=== PATIENT | male | born 1995 | race Caucasian/White ===

== ENCOUNTER 2019-01-28 10:43 | Emergency (ER) | payer BC, OTHER ==
[2019-01-28] MEDS ORDERED: Sodium Chloride 0.9% 1,000 ML IV ONE (10:56)
--- NOTE | 2019-01-28 11:00 | EDM.PDOC ---
ED HPI GENERAL MEDICAL PROBLEM - General Chief Complaint: Abdominal Pain Stated Complaint: FLU Time Seen by Provider: 01/28/19 10:46 - History of Present Illness INITIAL COMMENTS - FREE TEXT/NARRATIVE: HISTORY AND PHYSICAL: History of present illness: Patient is a 23-year-old male presents with a concern of diarrhea and lower abdominal pain patient has had prior appendectomy he states has been over last 24 hours he denies fever chills denies trauma denies urinary symptoms or other concern Review of systems: As per history of present illness and below otherwise all systems reviewed and negative. Past medical history: As per history of present illness and as reviewed below otherwise noncontributory. Surgical history: As per history of present illness and as reviewed below otherwise noncontributory. Social history: No reported history of drug or alcohol abuse. Family history: As per history of present illness and as reviewed below otherwise noncontributory. Physical exam: HEENT: Atraumatic, normocephalic, pupils reactive, negative for conjunctival pallor or scleral icterus, mucous membranes moist, throat clear, neck supple, nontender, trachea midline. Lungs: Clear to auscultation, breath sounds equal bilaterally, chest nontender. Heart: S1S2, regular, negative for clicks, rubs, or JVD. Abdomen: Soft, nondistended, mild tenderness across lower abdomen no rebound no guarding this is nonlocalized. Negative for masses or hepatosplenomegaly. Negative for costovertebral tenderness. Pelvis: Stable nontender. Genitourinary: Deferred. Rectal: Deferred. Extremities: Atraumatic, negative for cords or calf pain. Neurovascular unremarkable. Neuro: Awake, alert, oriented. Cranial nerves II through XII unremarkable. Cerebellum unremarkable. Motor and sensory unremarkable throughout. Exam nonfocal. Diagnostics: CBC CMP UA lipase stool for C&S O&P C. difficile Therapeutics: Saline Liter bolus Impression: #1 diarrhea #2 abdominal pain Definitive disposition and diagnosis as appropriate pending reevaluation and review of above. Right Lower Abdominal Pain Score (Numeric/FACES): 4 - Related Data Allergies Allergy/AdvReac Type Severity Reaction Status Date / Time No Known Allergies Allergy Verified 01/28/19 10:55 Home Meds: Home Meds ARIPiprazole [Abilify] 5 mg PO DAILY 01/28/19 [History] Escitalopram [Lexapro] 20 mg PO DAILY 01/28/19 [History] ED ROS GENERAL - Review of Systems Review Of Systems: ROS reveals no pertinent complaints other than HPI. ED EXAM, GENERAL - Physical Exam Exam: See Below (See dictation) Course - Vital Signs Last Recorded V/S: Last Vital Signs Temp 36.6 C 01/28/19 10:51 Pulse 80 01/28/19 10:51 Resp 18 01/28/19 10:51 BP 108/78 01/28/19 10:51 Pulse Ox 98 01/28/19 10:51 - Orders/Labs/Meds Orders: Active Orders 24 hr Category Date Time Status CDIFF TOX A+B [OP] Stat Lab 01/28/19 11:30 Received CULTURE STOOL + CAMPY+SHIGATOX [RM] Stat Lab 01/28/19 11:30 Received UA RFX YAJAIRA AND CULT IF INDIC [URIN] Stat Lab 01/28/19 11:06 Received Labs: Laboratory Tests 01/28/19 01/28/19 Range/Units 11:06 11:06 WBC 4.08 (4.0-11.0) K/uL RBC 4.99 (4.50-5.90) M/uL Hgb 15.1 (13.0-17.0) g/dL Hct 43.2 (38.0-50.0) % MCV 86.6 (80.0-98.0) fL MCH 30.3 (27.0-32.0) pg MCHC 35.0 (31.0-37.0) g/dL RDW Std Deviation 39.1 (28.0-62.0) fl RDW Coeff of Analisa 12 (11.0-15.0) % Plt Count 227 (150-400) K/uL MPV 9.70 (7.40-12.00) fL Neut % (Auto) 49.1 (48.0-80.0) % Lymph % (Auto) 39.7 (16.0-40.0) % Jerome % (Auto) 6.6 (0.0-15.0) % Eos % (Auto) 3.4 (0.0-7.0) % Baso % (Auto) 1.2 (0.0-1.5) % Neut # (Auto) 2.0 (1.4-5.7) K/uL Lymph # (Auto) 1.6 (0.6-2.4) K/uL Jerome # (Auto) 0.3 (0.0-0.8) K/uL Eos # (Auto) 0.1 (0.0-0.7) K/uL Baso # (Auto) 0.1 (0.0-0.1) K/uL Nucleated RBC % 0.0 /100WBC Nucleated RBCs # 0 K/uL Sodium 141 (136-148) mmol/L Potassium 3.9 (3.5-5.1) mmol/L Chloride 107 (98-107) mmol/L Carbon Dioxide 25.7 (21.0-32.0) mmol/L BUN 9 (7.0-18.0) mg/dL Creatinine 1.1 (0.8-1.3) mg/dL Est Cr Clr Drug Dosing 102.66 mL/min Estimated GFR (MDRD) > 60.0 ml/min Glucose 137 H (74-106) mg/dL Calcium 9.0 (8.5-10.1) mg/dL Total Bilirubin 0.4 (0.2-1.0) mg/dL AST 15 (15-37) IU/L ALT 33 (14-63) IU/L Alkaline Phosphatase 100 (46-116) U/L Total Protein 6.9 (6.4-8.2) g/dL Albumin 3.6 (3.4-5.0) g/dL Globulin 3.3 (2.6-4.0) g/dL Albumin/Globulin Ratio 1.1 (0.9-1.6) Lipase 153 (73-393) U/L Meds: Medications Discontinued Medications Generic Name Dose Route Start Last Admin Trade Name Freq PRN Reason Stop Dose Admin Sodium Chloride 1,000 mls @ 999 mls/hr 01/28/19 10:56 01/28/19 11:08 Normal Saline IV 01/28/19 11:56 999 mls/hr STAT ONE Administration Departure - Departure Time of Disposition: 12:16 Disposition: Home, Self-Care 01 Condition: Good Clinical Impression: Abdominal pain, Diarrhea - Discharge Information Referrals: Alexa Miner DO [Primary Care Provider] - Forms: ED Department Discharge Additional Instructions: The following information is given to patients seen in the emergency department who are being discharged to home. This information is to outline your options for follow-up care. We provide all patients seen in our emergency department with a follow-up referral. The need for follow-up, as well as the timing and circumstances, are variable depending upon the specifics of your emergency department visit. If you don't have a primary care physician on staff, we will provide you with a referral. We always advise you to contact your personal physician following an emergency department visit to inform them of the circumstance of the visit and for follow-up with them and/or the need for any referrals to a consulting specialist. The emergency department will also refer you to a specialist when appropriate. This referral assures that you have the opportunity for followup care with a specialist. All of these measure are taken in an effort to provide you with optimal care, which includes your followup. Under all circumstances we always encourage you to contact your private physician who remains a resource for coordinating your care. When calling for followup care, please make the office aware that this follow-up is from your recent emergency room visit. If for any reason you are refused follow-up, please contact the [facility] emergency department at and asked to speak to the emergency department charge nurse. [facility] [address] [place] [address] Push fluids clear liquids as directed avoid dairy 72 hours follow-up primary medical doctor in her clinic above return as needed as discussed - My Orders Last 24 Hours: My Active Orders 01/28/19 11:06 UA RFX YAJAIRA AND CULT IF INDIC [URIN] Stat 01/28/19 11:30 CDIFF TOX A+B [OP] Stat CULTURE STOOL + CAMPY+SHIGATOX [RM] Stat - Assessment/Plan Last 24 Hours: My Active Orders 01/28/19 11:06 UA RFX YAJAIRA AND CULT IF INDIC [URIN] Stat 01/28/19 11:30 CDIFF TOX A+B [OP] Stat CULTURE STOOL + CAMPY+SHIGATOX [RM] Stat
[2019-01-28 11:31] LABS: CHLORIDE,CL 107 mmol/L (98-107); SODIUM,NA 141 mmol/L (136-148)
== END 2019-01-28 12:44 | disposition home or self-care (01) ==
LOC: MW.ED 10:43
DX: R19.7 Diarrhea, unspecified (principal); R10.9 Unspecified abdominal pain; Z79.899 Other long term (current) drug therapy
CPT/HCPCS: 36415; 80053; 81003; 83690; 85025; 87046; 87324; 87899; 96360; 99284; J7040

== ENCOUNTER 2021-10-22 20:29 | Emergency (ER) | payer BC ==
[2021-10-22 22:33] LABS: CORONAVIRUS COVID-19 NAA POSITIVE (NEGATIVE)
[2021-10-22 22:34] LABS: INFLUENZA A NAA NEGATIVE (NEGATIVE); INFLUENZA B NAA NEGATIVE (NEGATIVE)
[2021-10-22] MEDS ORDERED: Acetaminophen 325 MG Tab PO ONE (23:17)
[2021-10-22] MEDS ORDERED: Ibuprofen 600 MG Tab PO ONE (23:17)
[2021-10-22] MEDS ORDERED: Ondansetron 4 MG Tab.DIS PO ONE (23:17)
--- NOTE | 2021-10-22 23:23 | EDM.PDOC ---
ED HPI GENERAL MEDICAL PROBLEM - General Chief Complaint: General Stated Complaint: POSSIBLE DEHYDRATION Time Seen by Provider: 10/22/21 22:45 - History of Present Illness INITIAL COMMENTS - FREE TEXT/NARRATIVE: HISTORY AND PHYSICAL: History of present illness: This is a healthy 26-year-old gentleman with no history of hypertension, diabetes, liver, lung, kidney problems who presents ER today secondary to sinus symptoms concerning for Covid. 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 Patient reports decreased appetite, has been able to drink plenty of fluids, complaining of occasional abdominal cramping and chest pain with inspiration. Patient has any shortness of breath. Patient reports cough nonproductive. Patient denies any ear pain or sore throat. Patient denies any nuchal rigidity. Patient reports he had a headache and pain behind his eyes. Patient has any dysuria, frequency, urgency. Review of systems: As per history of present illness and below otherwise all systems reviewed and negative. Past medical history: As per history of present illness and as reviewed below otherwise noncontributory. Surgical history: As per history of present illness and as reviewed below otherwise noncontributory. Social history: No reported history of drug abuse. Family history: As per history of present illness and as reviewed below otherwise noncontributory. Physical exam: This patient was seen and evaluated during the 2019 SARS-CoV-2 novel coronavirus pandemic period. Community viral transmission is ongoing at time of this encounter and the emergency department is operating under pandemic response procedures. Constitutional: Patient is oriented to person, place, and time. Appears well- developed and well-nourished. No distress. HEENT: Moist mucous membranes Head: Normocephalic and atraumatic Eyes: Right eye exhibits no discharge. Left eye exhibits no discharge. No scleral icterus Neck: Normal range of motion. No tracheal deviation present. Cardiovascular: Normal rate and regular rhythm. Pulmonary: Effort normal, no respiratory distress. Abdominal: No distention Musculoskeletal: Normal range of motion Neurologic: Alert and oriented to person, place and time. Skin: [place], warm and dry. Psychiatric: Normal mood and affect. Behavior is normal. Judgment and thought content normal. Nursing note and vital signs have been reviewed Diagnostics: Influenza AB negative Covid positive Therapeutics: Acetaminophen, ibuprofen, Zofran. Patient drinking a bottle of Gatorade in the room was provided for him. Assessment and plan: 26-year-old gentleman who presents ER today with signs and symptoms consistent with coronavirus. Patient is clinically hemodynamically stable with a pulse ox of 98% on room air. Patient will be given a prescription for ibuprofen, Zofran and to take [id number] Tylenol. Patient was instructed to return to the ER if he starts feeling increased shortness of breath. Patient was discussed with quarantining and following up with the health department. Reassessment at the time of disposition demonstrates that the patient is in no acute distress. The patient has remained stable throughout the entire ED visit and is without objective evidence for acute process requiring urgent intervention or hospitalization. The patient is stable for discharge, counseling is provided as documented above, discussed symptomatic treatment and specific conditions for return. I have spoken with the patient/caregiver and discussed todays findings, in add ition to providing specific details for the plan of care. Questions are answered and there is agreement with the plan. Definitive disposition and diagnosis as appropriate pending reevaluation and rev iew of above. Generalized Pain Score (Numeric/FACES): 6 - Related Data Allergies Allergy/AdvReac Type Severity Reaction Status Date / Time No Known Allergies Allergy Verified 10/22/21 21:34 Home Meds: Home Meds Escitalopram Oxalate [Lexapro] 30 mg PO DAILY 10/22/21 [History] Ibuprofen 600 mg PO Q6HR PRN #30 tablet 10/22/21 [Rx] Ondansetron [Zofran ODT] 4 mg PO Q6H PRN #12 tab.dis 10/22/21 [Rx] Past Medical History Cardiovascular History: Reports: Heart Murmur Psychiatric History: Reports: Anxiety, Depression - Infectious Disease History Infectious Disease History: Reports: None Social & Family History - Family History Family Medical History: No Pertinent Family History - Tobacco Use Tobacco Use Status *Q: Never Tobacco User - Recreational Drug Use Recreational Drug Use: No ED ROS GENERAL - Review of Systems Review Of Systems: See Below ED EXAM, GENERAL - Physical Exam Exam: See Below Course - Vital Signs Last Recorded V/S: Last Vital Signs Temp 99.1 F 10/22/21 21:27 Pulse 86 10/22/21 21:27 Resp 18 10/22/21 21:27 BP 112/73 10/22/21 21:27 Pulse Ox 99 10/22/21 21:27 - Orders/Labs/Meds Orders: Active Orders 24 hr Category Date Time Status Acetaminophen [TylenoL] Med 10/22/21 23:17 Once 650 mg PO NOW ONE Ibuprofen [Motrin] Med 10/22/21 23:17 Once 600 mg PO ONETIME ONE Ondansetron [Zofran ODT] Med 10/22/21 23:17 Once 4 mg PO ONETIME ONE Labs: Laboratory Tests 10/22/21 Range/Units 21:32 Influenza Type A RNA NEGATIVE (NEGATIVE) Influenza Type B RNA NEGATIVE (NEGATIVE) SARS-CoV-2 RNA (MICHELLE) POSITIVE H (NEGATIVE) Departure - Departure Time of Disposition: 23:22 Disposition: Home, Self-Care 01 Condition: Good Clinical Impression: COVID-19 virus infection - Discharge Information Instructions: 10 Things You Can Do to Manage Your COVID-19 Symptoms at Home - [facility] (05/30/2021), How to Wear and Take Off Your Mask - [facility] (02/13/2021), COVID- 19: Quarantine vs. Isolation - [facility] (10/31/2020) Referrals: PCP,None [Primary Care Provider] - Additional Instructions: Your seen and evaluated in the ER today secondary to signs and symptoms consistent with Covid. Although your influenza A/influenza B test were negative your Covid test was positive today. You will be given a prescription for ibuprofen and Zofran to take You with your nausea and fevers and body aches. You can also add acetaminophen [id number] to help. 1. Your COVID-19 screening is positive. That means you do have the coronavirus and you are considered contagious. Your vital signs and oxygen saturation are well enough that you were able to monitor your symptoms at home. Continue to monitor for trouble breathing, new confusion or inability to arouse, bluish lips or face or any of the other symptoms we discussed -if this occurs please return to the emergency room. 2. Please self quarantine over the next 10 days. Inform any persons that you have been in contact with since you started becoming symptomatic that you have tested positive; they should be made aware and take the appropriate steps as needed. 3. You can take NyQuil during the evening to help get a restful night sleep. May alternate Tylenol and ibuprofen as needed for pain and fever management. 4. The [facility] will be calling you and following up with you. The [place] [facility] 19 Hotline phone number , They are open Wednesday - Wednesday 7am - 7pm. Follow up with your primary care provider for re-evaluation and re-testing after the 10 day quarantine and discuss when you should be seen. The following information is given to patients seen in the emergency department who are being discharged to home. This information is to outline your options for follow-up care. We provide all patients seen in our emergency department with a follow-up referral. The need for follow-up, as well as the timing and circumstances, are variable depending upon the specifics of your emergency department visit. If you don't have a primary care physician on staff, we will provide you with a referral. We always advise you to contact your personal physician following an emergency department visit to inform them of the circumstance of the visit and for follow-up with them and/or the need for any referrals to a consulting specialist. The emergency department will also refer you to a specialist when appropriate. This referral assures that you have the opportunity for follow-up care with a specialist. All of these measure are taken in an effort to provide you with optimal care, which includes your follow-up. Under all circumstances we always encourage you to contact your private physician who remains a resource for coordinating your care. When calling for follow-up care, please make the office aware that this follow-up is from your recent emergency room visit. If for any reason you are refused follow-up, please contact the [facility] Emergency Department at and asked to speak to the emergency department charge nurse. [facility] [address] [place] [id number] [address] Sepsis Event Note (ED) - Evaluation Sepsis Screening Result: No Definite Risk - Focused Exam Vital Signs: Vital Signs Temp Pulse Resp BP Pulse Ox 10/22/21 21:27 99.1 F 86 18 112/73 99 - My Orders Last 24 Hours: My Active Orders 10/22/21 23:17 Acetaminophen [TylenoL] 650 mg PO NOW ONE Ibuprofen [Motrin] 600 mg PO ONETIME ONE Ondansetron [Zofran ODT] 4 mg PO ONETIME ONE - Assessment/Plan Last 24 Hours: My Active Orders 10/22/21 23:17 Acetaminophen [TylenoL] 650 mg PO NOW ONE Ibuprofen [Motrin] 600 mg PO ONETIME ONE Ondansetron [Zofran ODT] 4 mg PO ONETIME ONE
== END 2021-10-22 23:32 | disposition home or self-care (01) ==
LOC: MERGE 20:29 → EDBD 20:29 → MW.ED 20:29
DX: U07.1 COVID-19 (principal)
CPT/HCPCS: 0240U; 99284; A9270